=== PATIENT | male | born 1985 | race American Indian/Alaskan Native ===

== ENCOUNTER 2016-08-21 20:26 | Emergency (ER) | payer SELFPAY ==
[2016-08-21 20:41] VITALS: BP 161/88
== END 2016-08-21 21:49 | disposition left against medical advice (07) ==
LOC: JP.ED 20:26
DX: Z53.21 Procedure and treatment not carried out due to patient leaving prior to being seen by health care provider (principal)

== ENCOUNTER 2018-12-23 21:22 | Emergency (ER) | payer OTHER ==
[2018-12-23 22:23] VITALS: BP 142/88; PULSE 88
[2018-12-23] MEDS ORDERED: cefTRIAXone 1 GM Vial IM ONE (22:56)
[2018-12-23] MEDS ORDERED: Acetaminophen/HYDROcodone 325-5 MG Tab PO ONE (22:56)
--- NOTE | 2018-12-23 23:05 | EDM.PDOC ---
ED HPI GENERAL MEDICAL PROBLEM - General Chief Complaint: Skin Complaint Stated Complaint: SPIDER BITE INFECTION Time Seen by Provider: 12/23/18 22:43 Source of Information: Reports: Patient History Limitations: Reports: No Limitations - History of Present Illness INITIAL COMMENTS - FREE TEXT/NARRATIVE: chief complaint: spider bite to right wrist This is a 33 year old male presents to the ER for evaluation of abscess on the right wrist. He reports yesterday morning woke up with a sore on the right wrist , since then the sore is more swollen, red and drainage. denies any fever, chills, nausea, vomiting. denies any past hx of MRSA denies any IVDU Onset: Gradual Onset Date: 12/22/18 Duration: Day(s):, Getting Worse Location: Reports: Upper Extremity, Right (wrist) Quality: Reports: Sharp, Throbbing Severity: Moderate (rate pain 5 out of 5.) Improves with: Reports: None Worsens with: Reports: None Associated Symptoms: Reports: No Other Symptoms Right Wrist Pain Score (Numeric/FACES): 9 - Related Data Allergies Allergy/AdvReac Type Severity Reaction Status Date / Time ibuprofen Allergy Unknown Hives Verified 12/23/18 22:28 naproxen Allergy Unknown Hives Verified 12/23/18 22:28 Home Meds: Home Meds NK [No Known Home Meds] 11/05/12 [History] Past Medical History - Past Health History Medical/Surgical History: Denies Medical/Surgical History HEENT History: Reports: Other (See Below) Other HEENT History: dental issues Psychiatric History: Reports: Psych Hospitalization(s), Suicide Attempt, Suicidal Ideation Social & Family History - Tobacco Use Smoking Status *Q: Current Every Day Smoker Years of Tobacco use: 20 Packs/Tins Daily: 0.5 - Caffeine Use Caffeine Use: Reports: Coffee - Recreational Drug Use Recreational Drug Use: Yes Recreational Drug Type: Reports: Marijuana/Hashish - Living Situation & Occupation Living situation: Reports: with Significant Other ED ROS GENERAL - Review of Systems Review Of Systems: See Below Constitutional: Denies: Fever, Chills HEENT: Reports: No Symptoms Respiratory: Reports: No Symptoms Cardiovascular: Reports: No Symptoms Endocrine: Reports: No Symptoms GI/Abdominal: Reports: No Symptoms Skin: Reports: Other (abscess drainage, redness, pain to anterior right wrist) Neurological: Reports: No Symptoms Psychiatric: Reports: No Symptoms Hematologic/Lymphatic: Reports: No Symptoms Immunologic: Reports: No Symptoms ED EXAM, SKIN/RASH Exam: See Below Exam Limited By: No Limitations General Appearance: Alert, WD/WN, No Apparent Distress Respiratory/Chest: No Respiratory Distress Extremities: Arm Pain, Redness, Other (right wrist with 2 cm circular abscess with central point of drainage, redness from wrist to mid forearm. painful nodes noted in axilla. increased pain with flexion-extension of wrist due to edema) Neurological: Alert, Oriented, CN II-XII Intact, Normal Cognition, Normal Gait, Normal Reflexes, No Motor/Sensory Deficits Psychiatric: Normal Mood Skin: Warm, Erythema (right wrist), Increased Warmth (right wrist), Wound/ Incision (abscess drainage right wrist) Location, Skin: Upper Extremity, Right (wrist right) Associated features: Warmth, Tenderness, Swelling, Inflammation, Weeping Lymphatic: Adenopathy (right axillay tendern to palpation of lymph nodes) Course - Vital Signs Last Recorded V/S: Last Vital Signs Temp 36.5 C 12/23/18 22:29 Pulse 88 12/23/18 22:29 Resp 16 12/23/18 22:29 BP 142/88 H 12/23/18 22:29 Pulse Ox 99 12/23/18 22:29 - Orders/Labs/Meds Orders: Active Orders 24 hr Category Date Time Status COMPREHENSIVE METABOLIC PN,CMP [CHEM] Urgent Lab 12/23/18 23:09 Received CULTURE WOUND + SMEAR [RM] Stat Lab 12/23/18 22:55 Received Labs: Laboratory Tests 12/23/18 Range/Units 23:09 WBC 14.8 H (4.5-11.0) K/uL RBC 5.08 (4.30-5.90) M/uL Hgb 13.8 (12.0-15.0) g/dL Hct 42.7 (40.0-54.0) % MCV 84 (80-98) fL MCH 27 (27-31) pg MCHC 32 (32-36) % Plt Count 317 (150-400) K/uL Neut % (Auto) 82 H (36-66) % Lymph % (Auto) 11 L (24-44) % [place] % (Auto) 6 (2-6) % Eos % (Auto) 1 L (2-4) % Baso % (Auto) 0 (0-1) % Meds: Medications Discontinued Medications Generic Name Dose Route Start Last Admin Trade Name Ryder PRN Reason Stop Dose Admin Hydrocodone Bitart/Acetaminophen 1 tab 12/23/18 22:56 12/23/18 23:12 [place] 325-5 Mg PO 12/23/18 22:57 1 tab ONETIME ONE Administration Ceftriaxone Sodium 1 gm 12/23/18 22:56 12/23/18 23:13 Rocephin IM 12/23/18 22:57 1 gm ONETIME ONE Administration Lidocaine HCl Confirm 12/23/18 23:08 12/23/18 23:13 Xylocaine-Mpf 1% Administered 12/23/18 23:09 2.1 ml Dose Administration 5 ml .ROUTE .STK-MED ONE - Re-Assessments/Exams Free Text/Narrative Re-Assessment/Exam: 12/23/18 23:29 Mr. Lowery reports his ride is waiting for him. He has to go. will have labs drawn and get meds. but can't wait for any IV antibiotics. He is sorry but has to get going for his ride. will go to [facility] in the morning for recheck. labs pending CBC, CMP Wound Culture Medications given Rocephin 1 gram IM, Hydrocodone 5-325mg po once will discharge to home with follow up in the morning. Discharge medication Keflex 500mg po tid, hydrocodone 5-325mg po every 4 to 6 hours prn pain #4 Mr. Lowery and S.O request this plan of care. unable to stay any longer. Departure - Departure Time of Disposition: 23:00 Disposition: Home, Self-Care 01 Condition: Good Clinical Impression: Abscess - Discharge Information *PRESCRIPTION DRUG MONITORING PROGRAM REVIEWED*: No *COPY OF PRESCRIPTION DRUG MONITORING REPORT IN PATIENT CHEMA: No Instructions: Skin Abscess, [id number] Referrals: PCP,None [Primary Care Provider] - Forms: ED Department Discharge Care Plan Goals: Skin Abscess right wrist -Rocephin 1 gram IM in ER -Hydrocodone 5-325mg one in ER -labs: wound culture, CBC, CMP home medications -Keflex 500mg 3 times a day til gone -Hydrocodone 5-325mg one po every 4 to 6 hours as needed for pain #4 -will follow up with [facility] tomorrow for recheck Return to ER for any increased pain, fever, chills, increased drainage and swelling or any concerns. - Problem List & Annotations (1) Abscess SNOMED Code(s): 651650711 Code(s): L02.91 - CUTANEOUS ABSCESS, UNSPECIFIED Status: Acute Priority: High Current Visit: Yes - Problem List Review Problem List Initiated/Reviewed/Updated: Yes - My Orders Last 24 Hours: My Active Orders 12/23/18 22:55 CULTURE WOUND + SMEAR [RM] Stat 12/23/18 23:09 COMPREHENSIVE METABOLIC PN,CMP [CHEM] Urgent - Assessment/Plan Last 24 Hours: My Active Orders 12/23/18 22:55 CULTURE WOUND + SMEAR [RM] Stat 12/23/18 23:09 COMPREHENSIVE METABOLIC PN,CMP [CHEM] Urgent Plan: Skin Abscess right wrist -Rocephin 1 gram IM in ER -Hydrocodone 5-325mg one in ER -labs: wound culture, CBC, CMP home medications -Keflex 500mg 3 times a day til gone -Hydrocodone 5-325mg one po every 4 to 6 hours as needed for pain #4 -will follow up with [facility] tomorrow for recheck Return to ER for any increased pain, fever, chills, increased drainage and swelling or any concerns.
== END 2018-12-23 23:29 | disposition home or self-care (01) ==
LOC: JP.ED 21:22
DX: L02.413 Cutaneous abscess of right upper limb (principal); Z88.6 Allergy status to analgesic agent
CPT/HCPCS: 36415; 80053; 85025; 87070; 87077; 87205; 96372; 99283; A9270; J0696; J2001

== ENCOUNTER 2019-03-01 08:42 | Emergency (ER) | payer OTHER ==
[2019-03-01 09:10] VITALS: BP 136/80; PULSE 78
[2019-03-01] MEDS ORDERED: Tetracaine HCl/PF 0.5% 4 ML Bottle EYELF ONE (09:12)
--- NOTE | 2019-03-01 09:28 | EDM.PDOC ---
ED HPI GENERAL MEDICAL PROBLEM - General Chief Complaint: Eye Problems Stated Complaint: SOMETHING IN LT EYE Time Seen by Provider: 03/01/19 09:10 Source of Information: Reports: Patient, Old Records History Limitations: Reports: No Limitations - History of Present Illness INITIAL COMMENTS - FREE TEXT/NARRATIVE: 33 yo male presents with L eye pain, photophobia and watering. He awoke today feeling fine and rubbed that eye with abrupt onset of severe pain. He has not seen anything in the eye. The pain continues. He says his tetanus is UTD. 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) Left Eye Pain Score (Numeric/FACES): 9 - Related Data Allergies Allergy/AdvReac Type Severity Reaction Status Date / Time ibuprofen Allergy Unknown Hives Verified 12/23/18 22:28 naproxen Allergy Unknown Hives Verified 12/23/18 22:28 Home Meds: Home Meds Amoxicillin 875 mg PO BID 03/01/19 [History] Past Medical History - Past Health History Medical/Surgical History: Denies Medical/Surgical History HEENT History: Reports: Other (See Below) Other HEENT History: dental issues Psychiatric History: Reports: Psych Hospitalization(s), Suicide Attempt, Suicidal Ideation Social & Family History - Tobacco Use Smoking Status *Q: Current Every Day Smoker Years of Tobacco use: 15 Packs/Tins Daily: 0.5 - Caffeine Use Caffeine Use: Reports: Coffee, Soda, Tea - Recreational Drug Use Recreational Drug Use: Yes Drug Use in Last 12 Months: Yes Recreational Drug Type: Reports: Marijuana/Hashish Recreational Drug Use Frequency: Daily - Living Situation & Occupation Living situation: Reports: with Significant Other ED ROS GENERAL - Review of Systems Review Of Systems: Comprehensive ROS is negative, except as noted in HPI. HEENT: Reports: Eye Pain ED EXAM GENERAL W FULL EYE - Physical Exam Exam: See Below Exam Limited By: No Limitations General Appearance: Alert, WD/WN, Mild Distress Eye Exam: Left Eye: Corneal Abrasion (seen after fluorescein staining), Bilateral Eye: PERRL Eyelids: Bilateral: Normal Appearance Conjunctiva & Sclera: Bilateral: Normal Appearance Cornea Exam: Left: Corneal Abrasion (at 1 pm ) Pupillary Size: Bilateral: 3 mm Ears: Normal External Exam, Normal Canal, Hearing Grossly Normal Nose: Normal Inspection, No Blood Head: Atraumatic, Normocephalic Course - Vital Signs Text/Narrative:: Exam with tetracaine for anesthesia. Last Recorded V/S: Last Vital Signs Temp 35.5 C 03/01/19 09:09 Pulse 78 03/01/19 09:09 Resp 16 03/01/19 09:09 BP 136/80 03/01/19 09:09 Pulse Ox 94 L 03/01/19 09:09 - Orders/Labs/Meds Meds: Medications Discontinued Medications Generic Name Dose Route Start Last Admin Trade Name Freq PRN Reason Stop Dose Admin Tetracaine HCl 1 ml 03/01/19 09:12 03/01/19 09:15 Tetracaine 0.5% Steri-Unit Bhavna EYELF 03/01/19 09:13 4 drop ASDIRECTED ONE Administration Departure - Departure Time of Disposition: : Disposition: Home, Self-Care 01 Condition: Good Clinical Impression: Corneal abrasion Qualifiers: Encounter type: initial encounter Laterality: left Qualified Code(s): S05.02XA - Injury of conjunctiva and corneal abrasion without foreign body, left eye, initial encounter - Discharge Information *PRESCRIPTION DRUG MONITORING PROGRAM REVIEWED*: No *COPY OF PRESCRIPTION DRUG MONITORING REPORT IN PATIENT CHEMA: No Instructions: Corneal Abrasion, [id number] Referrals: PCP,None [Primary Care Provider] - Additional Instructions: No rubbing your eye. Rest in a dark room. Use the eye drops as given for 2+ days. Take ibuprofen 600 mg every 6 hrs with food for pain relief. Add acetaminophen OR [place] for added relief. Recheck in the clinic tomorrow if not improved. Sepsis Event Note - Evaluation Sepsis Screening Result: No Definite Risk - Focused Exam Vital Signs: Vital Signs Temp Pulse Resp BP Pulse Ox 03/01/19 09:09 35.5 C 78 16 136/80 94 L Date Exam was Performed: 03/01/19 Time Exam was Performed: 09:23
== END 2019-03-01 09:42 | disposition home or self-care (01) ==
LOC: JP.ED 08:42
DX: S05.02XA Injury of conjunctiva and corneal abrasion without foreign body, left eye, initial encounter (principal); F17.210 Nicotine dependence, cigarettes, uncomplicated; Z88.8 Allergy status to other drugs, medicaments and biological substances; X58.XXXA Exposure to other specified factors, initial encounter
CPT/HCPCS: 99283